=== PATIENT | female | born 1945 | race Caucasian/White ===

== ENCOUNTER → 2017-08-28 | Outpatient (CLI) | payer OTHER ==
--- NOTE | 2017-08-28 16:22 | PCVCIMAG ---
APPROVED REPORT Laterality: Bilateral Patient Location: Out-Patient Indications Stenosis Risk Factors Hypertension: Hyperlipidemia Diabetes, Doppler Spectral Velocity Analysis PSV / EDVPSV / EDV ECA (R) 200 / 26 cm/sECA (L) 151 / 23 cm/s dICA (R) 77 / 27 cm/sdICA (L) 52 / 20 cm/s Christ (R) 160 / 57 cm/smICA (L) 84 / 17 cm/s pICA (R) 252 / 85 cm/spICA (L) 249 / 74 cm/s Bulb (R) 138 / 35 cm/sBulb (L) 141 / 39 cm/s dCCA (R) 71 / 24 cm/sdCCA (L) 94 / 27 cm/s mCCA (R) 85 / 27 cm/smCCA (L) 85 / 23 cm/s pCCA (R) 98 / 31 cm/spCCA (L) Vert (R) 83 / 18 cm/sVert (L) 63 / 20 cm/s ICA/CCA 2.65 ICA/CCA 3.00 Basic Measurements Blood Pressure: Pulses: Right Left RightLeft Brachial(Sitting) 142/35rvCt336/80mmHgTemporal Real Time B-Mode Imaging Vert. (R)AntegradeVert. (L)Antegrade Findings The right carotid bulb has moderately severe calcified plaque. The right proximal internal carotid artery shows 70-90% stenosis. The right common carotid artery shows <40% stenosis. The right external carotid artery shows <50% stenosis. The left carotid bulb has severe calcified plaque. The left proximal internal carotid artery shows 70-90% stenosis. The left common carotid artery shows 40-50% stenosis. The left external carotid artery shows <50% stenosis. Conclusion 1. Right internal carotid artery stenosis (70-90%) 2. Left internal carotid artery stenosis (70-90%) 3. Left common carotid artery stenosis (40-50%) 4. Antegrade vertebral flow
--- NOTE | 2017-08-28 22:19 | PCVCIMAG ---
EXAM: ARTERIAL DUPLEX LEFT UPPER EXTREMITY INDICATION: Arm pain. FINDINGS: Left arm: 40% stenosis proximal left subclavian artery not felt to be flow-limiting. The left axillary, and brachial arteries are patent with satisfactory arterial waveforms. IMPRESSION: No high-grade arterial stenosis seen in the left upper extremity as detailed above. LOC:[id number]
== END | disposition home or self-care (01) ==
LOC: PCVCIMAG 12:30
PROVIDERS: ATTEND Internal Medicine
DX: I65.23 Occlusion and stenosis of bilateral carotid arteries (principal); I10 Essential (primary) hypertension; E11.9 Type 2 diabetes mellitus without complications; E78.5 Hyperlipidemia, unspecified; M79.602 Pain in left arm
CPT/HCPCS: 93880; 93931